=== PATIENT | female | born 2000 | race Caucasian/White ===

== ENCOUNTER 2023-06-02 11:53 | Emergency (ER) | payer OTHER, SELFPAY ==
[2023-06-02 12:00] VITALS: BP 127/89; PULSE 57; RESP 16; TEMP 35.8; O2SAT 100; BMI 23.5
--- NOTE | 2023-06-02 12:14 | US_ITS ---
Patient: CANDE ATKINSON Facility:?[facility] Patient ID:?[id number] Site Patient ID:?[id number]. Site :?2002 Study:?US-Abdomen RUQ-06/02/2023 1:20:23 PM Ordering Physician:CHRISTOPH MARTIN Final Report: INDICATION: Right upper quadrant abdominal pain. TECHNIQUE: Ultrasound abdomen limited. Sonographic images of the right upper quadrant were obtained using bowman-scale and color Doppler images. COMPARISON: None available. FINDINGS: Liver: Normal in size and echotexture. No suspicious masses. No intrahepatic biliary dilatation. Main portal vein is patent with blood flow towards the liver. Gallbladder: No stones or sludge. Normal wall thickness. No pericholecystic fluid. Common bile duct: 4 mm. Pancreas: Visualized portions are unremarkable. Right kidney: Normal in size. Normal echotexture and cortex. No suspicious masses, stones, or hydronephrosis. Vasculature: Proximal abdominal aorta and IVC are unremarkable. IMPRESSION: Unremarkable right upper quadrant abdominal ultrasound. Dictated by Sapphire Chappell MD @ 06/02/2023 1:32:13 PM Signed by:?Sapphire Chappell MD @06/02/2023 1:32:13 PM (Electronic Signature)
--- NOTE | 2023-06-02 12:14 | CT_ITS ---
Patient: CANDE ATKINSON Facility:?[facility] Patient ID:?[id number] Site Patient ID:?[id number]. Site :?2002 Study:?CT-Abdomen/Pelvis W/ ISOVUE 370-06/02/2023 1:49:57 PM Ordering Physician:AD Final Report: INDICATION: Right lower quadrant pain. COMPARISON: None available. TECHNIQUE: CT of the abdomen and pelvis with 74 cc of Isovue 370 intravenous contrast. Please note that all CT scans at this facility use dose modulation, iterative reconstruction, and/or weight-based dosing when appropriate to reduce radiation dose to as low as reasonably achievable. FINDINGS: ABDOMEN Liver: Normal hepatic attenuation. No suspicious focal hepatic lesion. No intrahepatic biliary ductal dilatation. Patent portal and hepatic veins. Gallbladder: Normal gallbladder size. Normal common duct caliber. No pericholecystic inflammatory changes. Pancreas: Normal pancreatic attenuation. No focal lesion. Normal duct caliber. No peripancreatic inflammatory changes. Spleen: Normal splenic attenuation. No suspicious focal lesion. Patent splenic artery and vein. Adrenal Glands: Symmetrical adrenal glands. No focal lesion of significance. Kidneys: Normal bilateral renal attenuation. No suspicious focal lesion. No obstructing nephrolith or dilatation of the intrarenal collecting systems. Patent renal arteries and veins. Nondilated upper urinary tracts. Gastrointestinal tract: Normal caliber, attenuation and wall thickness of the gastrointestinal tract. No inflammatory changes. Normal mesentery. 3 mm appendicolith (2; 107). No evidence of acute appendicitis. Vascular: Abdominal aorta and its major proximal branches including the celiac, superior mesenteric, inferior mesenteric, renal, and bilateral common iliac arteries are patent. Inferior vena cava, portal and superior mesenteric veins are patent. Additional findings: No incidental adenopathy. No significant ascites, free fluid or pneumoperitoneum. PELVIS No bladder lesion is identified. Centrally positioned T-shaped IUD. No abnormal free fluid. No incidental adenopathy. SKELETON AND BODY WALL No acute or suspicious incidental findings. LOWER THORAX Partially included lower thoracic wall, lungs, pleural spaces and mediastinum are otherwise without significant incidental findings. IMPRESSION: No imaging findings to explain right lower quadrant pain. Appendicolith. No evidence of acute appendicitis. Well-positioned IUD. Please note that all CT scans at this facility use dose modulation, iterative reconstruction, and/or weight-based dosing when appropriate to reduce radiation dose to as low as reasonably achievable. Dictated by Juaquin Chacon MD @ 06/02/2023 2:01:52 PM Signed by:?Juaquin Chacon MD @06/02/2023 2:01:52 PM (Electronic Signature)
--- NOTE | 2023-06-02 12:15 | US_ITS ---
Patient: CANDE ATKINSON Facility:?[facility] Patient ID:?[id number] Site Patient ID:?[id number]. Site :?2002 Study:?US-Pelvis TRANSVAGINAL-06/02/2023 1:20:58 PM Ordering Physician:?CHERELLE MARTIN Final Report: INDICATION: Right lower quadrant pain, IUD. TECHNIQUE: Ultrasound pelvis transvaginal. Real-time sonographic images with spectral and color Doppler imaging of the ovaries were obtained. COMPARISON: None. FINDINGS: Uterus: 7.7 x 2.9 x 3.8 cm cm. Normal echotexture of the myometrium. No masses. Endometrium: An intrauterine device is appropriately positioned within the endometrial cavity. Right ovary 3.5 x 1.5 x 2.4 cm. Left ovary 2.7 x 1.3 x 1.9 cm. No ovarian or adnexal masses. Normal arterial blood flow is demonstrated in both ovaries. Cul-de-sac: No significant free fluid. IMPRESSION: Unremarkable pelvic ultrasound. Normal position of the intrauterine device. Dictated by Sapphire Chappell MD @ 06/02/2023 1:29:33 PM Signed by:?Sapphire Chappell MD @06/02/2023 1:29:33 PM (Electronic Signature)
--- NOTE | 2023-06-02 12:18 | ED.GENADULT ---
HPI - General Adult General Chief complaint: Abdominal Pain Stated complaint: abdominal pain Time Seen by Provider: 06/02/23 11:54 History of Present Illness HPI narrative: [age] year white female reports 2 week history of pain in her right lower quadrant when she is running initially and last night even hurt her at night when she is lying down. She describes it in her right lower abdomen but also has some right upper quadrant pain as well. She describes no postprandial symptoms. Not worse or aggravated by anything other than activity or movement, she has not had any real marked fevers, chills. She went to urgent care and was sent to the emergency department. She had a negative CBC, her white count was normal, and she had a negative test at the urgent care. Patient does have a history of chronic diarrhea Raynaud's disease premenstrual dysphoric disorder and has an IUD in place. Patient denies chest pain, shortness of breath, neurologic complaints. Related Data Home Medications Medication Instructions Recorded Confirmed drospirenone 3 mg-ethinyl tab PO DAILY 09/13/22 06/02/23 estradiol 0.02 mg tablet fluoxetine 40 mg capsule 40 mg PO DAILY 09/13/22 06/02/23 Allergies Allergy/AdvReac Type Severity Reaction Status Date / Time No Known Drug Allergies Allergy Verified 06/02/23 14:18 Review of Systems Status of ROS: Reports: 6 or more systems reviewed and unremarkable except as noted in History and below [facility] Surgical History History of foot surgery ?Z98.890 - Other specified postprocedural states (ICD-10) Social History Smoking Status: Never smoker How often do you have a drink containing alcohol: never AUDIT-C Alcohol total score: 0 Non-prescribed substance use: denies use Exam Narrative: Exam Narrative: Objective: Patient's vital signs are within normal limits, afebrile Alert orient x3 non icteric sclera No facial asymmetry Pulse regular Abdomen soft nontender with exception of a mild right upper quadrant tenderness at the gallbladder area, She also has some tenderness or right lower quadrant at her appendiceal area. There is no rebound in either no palpable masses. Extremities good perfusion Neurologic grossly nonfocal Const: Vital Signs, click to edit/add: Vital Signs - 24 hr 06/02/23 12:00 Temperature 96.5 F L Pulse Rate [Pulse Oximeter] 57 L Respiratory Rate 16 Blood Pressure [Ri ght Upper Arm] 127/89 Pulse Oximetry 100 Oxygen Delivery Me thod Room Air Course Vital Signs Vital signs: Initial Vital Signs Temperature 96.5 F L 06/02/23 12:00 Temperature Source Temporal Artery Scan 06/02/23 12:00 Pulse Rate 57 L 06/02/23 12:00 Respiratory Rate 16 06/02/23 12:00 Blood Pressure 127/89 06/02/23 12:00 Blood Pressure Mean 101 06/02/23 12:00 Blood Pressure Position Supine 06/02/23 12:00 Pulse Oximetry 100 06/02/23 12:00 Oxygen Delivery Method Room Air 06/02/23 12:00 Vital Signs Temperature 96.5 F L 06/02/23 12:00 Pulse Rate 57 L 06/02/23 12:00 Respiratory Rate 16 06/02/23 12:00 Blood Pressure 127/89 06/02/23 12:00 Pulse Oximetry 100 06/02/23 12:00 Oxygen Delivery Method Room Air 06/02/23 12:00 Temperature 96.5 F L 06/02/23 12:00 Pulse Rate 57 L 06/02/23 12:00 Respiratory Rate 16 06/02/23 12:00 Blood Pressure 127/89 06/02/23 12:00 Pulse Oximetry 100 06/02/23 12:00 Oxygen Delivery Method Room Air 06/02/23 12:00 Medications Administered Medications: Discontinued Medications Generic Name Dose Route Start Last Admin Trade Name Arielq PRN Reason Stop Dose Admin Sodium Chloride 500 mls @ 500 mls/hr 06/02/23 12:15 06/02/23 13:41 0.9 % Sodium Chloride 500 Ml IV 06/02/23 13:14 500 mls/hr .Q1H ONE Administration Medical Decision Making [facility] Narrative Medical decision making narrative: 23-year-old white female with an IUD in place who has a history of 2 weeks of pain initially with running in her right lower quadrant now with pain in her right upper quadrant right lower quadrant and is pain at night at and it seems to be in worsening. She has got a negative urinalysis, negative test, negative CBC. Think be reasonable check a Chem profile is CRP, will get a ultrasound of her pelvis to make sure her IUD is in place and she has no ovarian pathology and no ovarian torsion, also make sure her right upper quadrant is normal. Will check electrolytes labs liver function tests. I think a CT scan of her abdomen be appropriate as well to make sure her appendix is normal and she has no evidence of inflammatory bowel disease given her history of chronic diarrhea. She was comfortable this plan wish to proceed. She has informed parents of the plan. She is from [place] attending [facility]. Addendum 2:15 p.m.: Patient has a negative CT scan of the abdomen, normal pelvic ultrasound good placement of her intrauterine device, right upper quadrant ultrasound is negative. Her lab studies look unremarkable., her CRP is 1.1. At this time I think ibuprofen, light activity be appropriate and observation, recheck with primary care in the next few days. Certainly sooner change concerns worsening return to ED. do not have a great explanation for her discomfort certainly could be abdominal wall given it started when she was exercising and running. Would avoid heavy exertional activities for few days up to week and then see if she is better. She was comfortable this plan. Lab Data Labs: Lab Results 06/02/23 Range/Units 12:40 Sodium 140 (135-149) mmol/L Potassium 4.1 (3.6-5.1) mmol/L Chloride 109 (96-114) mmol/L Carbon Dioxide 23 (20-32) mmol/L Anion Gap 8 (7-15) mEq/L BUN 12 (5-24) mg/dL Creatinine 0.6 (0.5-1.5) mg/dL Estimated Creat Clear 144.23 Estimated GFR 131 ml/min Glucose 92 (60-115) mg/dL Calcium 9.8 (8.4-10.6) mg/dL Total Bilirubin 0.5 (0.1-1.5) mg/dL Direct Bilirubin 0.0 (0.0-0.5) mg/dL AST 24 (12-35) U/L ALT 17 (4-35) U/L Alkaline Phosphatase 77 (40-150) U/L C-Reactive Protein 1.1 H (0.5-1.0) mg/dL Total Protein 8.6 H (6.0-8.3) g/dL Albumin 4.8 (3.3-5.0) g/dL Discharge Plan Discharge Clinical Impression: Right sided abdominal pain Patient Disposition: Home, Self-Care Condition: Stable Additional Instructions: Recommend no exercise or running for the next week to 10 days, ibuprofen as needed perhaps twice a day or 3 times a day to reduce inflammation, light activity no heavy lifting or exertion as mention, recheck with regular doctor in a week, return to ED sooner problems concerns worsening. Activity Level: Light activity Discharge Diet: Regular Prescriptions: No Action drospirenone-ethinyl estradiol 3-0.02 mg tablet PO DAILY fluoxetine 40 mg capsule 40 mg PO DAILY Follow Up/Referrals: YOBANI RACHEL DO [Primary Care Provider] - Stand Alone Forms: [employer] Info Instructions
[2023-06-02 13:12] LABS: Chloride* 109 mmol/L (96-114); Potassium* 4.1 mmol/L (3.6-5.1); Sodium* 140 mmol/L (135-149)
[2023-06-02 13:13] LABS: Albumin* 4.8 g/dL (3.3-5.0)
[2023-06-02 13:14] LABS: Creatinine* 0.6 mg/dL (0.5-1.5); Est. Creatinine Clearance* 144.23; Estimated Glomerular Filt Rate 131 ml/min
[2023-06-02 13:15] LABS: Anion Gap 8 mEq/L (7-15); Blood Urea Nitrogen* 12 mg/dL (5-24); Carbon Dioxide* 23 mmol/L (20-32)
[2023-06-02 13:16] LABS: Alanine Aminotransferase* 17 U/L (4-35); Alkaline Phosphatase* 77 U/L (40-150); Aspartate Amino Transferase* 24 U/L (12-35); Bilirubin Total* 0.5 mg/dL (0.1-1.5); Calcium* 9.8 mg/dL (8.4-10.6); Glucose* 92 mg/dL (60-115); Total Protein* 8.6 g/dL (6.0-8.3)
[2023-06-02 13:18] LABS: C Reactive Protein* 1.1 mg/dL (0.5-1.0)
[2023-06-02] MEDS: 0.9 % SODIUM CHLORIDE 500 ML 500 ML IV (13:41)
== END 2023-06-02 14:34 | disposition home or self-care (01) ==
PROVIDERS: Emergency Provider Family Medicine; PCP Student in an Organized Health Care Education/Training Program
DX: R10.31 Right lower quadrant pain (principal)
CPT/HCPCS: 36415; 74177; 76705; 76830; 80048; 80076; 86140; 87086; 93976; 99283; 99284; J7030; Q9967